=== PATIENT | male | born 1945 | race Caucasian/White ===

== ENCOUNTER 2021-03-31 12:39 | Emergency (ER) | payer MEDICARE ==
[~2021-03-31] VITALS: Ht 188 cm; Wt 88.6 kg
--- NOTE | 2021-03-31 13:13 | NUR ---
LEFT FOREARM REDDENED RASH STARTED ABOUT 3 PM YESTERDAY WHEN HE WAS REMOVING PATION FURNITURE FROM CUPBORDS OUTSIDE. THE RASH IS BIGGER WITH A DARKER PURPLISH AREA. DEMARCATED WITH SKIN MARKERl: TIMED AND DATED PATIETN NOT ON BLOOD THINNERS
[2021-03-31] MEDS ORDERED: CEPH-585 PO (14:12)
[2021-03-31 14:28] VITALS: BP 119/66
== END 2021-03-31 14:33 | disposition home or self-care (01) ==
LOC: ER 12:42
DX: L03.114 Cellulitis of left upper limb (principal); Z79.899 Other long term (current) drug therapy
CPT/HCPCS: 99283

== ENCOUNTER 2022-01-21 12:03 | Observation (INO) | payer MEDICARE ==
[~2022-01-21] VITALS: Ht 188 cm; Wt 89.9 kg
[2022-01-21 12:55] LABS: BASOPHILS % (AUTO) 0.6 % (0-1); EOSINOPHILS # (AUTO) 0.1 X10'3 (0-0.9); EOSINOPHILS % (AUTO) 1.9 % (0-6); HEMATOCRIT 40.5 % (42.0-52.0); HEMOGLOBIN 13.8 g/dl (14.0-17.9); LYMPHOCYTES # (AUTO) 1.9 X10'3 (1.1-4.8); LYMPHOCYTES % (AUTO) 27.7 % (21-51); MEAN CORPUSCULAR HEMOGLOBIN 32.8 PG (27.0-31.0); MEAN CORPUSCULAR HGB CONC 33.9 g/dL (33.0-36.5); MEAN CORPUSCULAR VOLUME 96.7 FL (78-98); MEAN PLATELET VOLUME 8.3 FL (7.4-10.4); MONOCYTES # (AUTO) 0.5 X10'3 (0-0.9); MONOCYTES % (AUTO) 7.9 % (2-12); NEUTROPHILS # (AUTO) 4.3 X10'3 (1.8-7.7); NEUTROPHILS % (AUTO) 61.9 % (42-75); PLATELET COUNT 246 X10'3 (140-440); RED BLOOD COUNT 4.19 X10'6 (4.70-6.10); RED CELL DISTRIBUTION WIDTH 13.7 % (11.5-14.5); WHITE BLOOD COUNT 6.9 X10'3 (4.5-11.0)
[2022-01-21 13:53] LABS: ALANINE AMINOTRANSFERASE 31 U/L (12-78); ALBUMIN 3.7 G/DL (3.4-5.0); ALBUMIN/GLOBULIN RATIO 1.2 (1.1-1.5); ALKALINE PHOSPHATASE 64 IU/L (46-116); ANION GAP 9 (8-16); ASPARTATE AMINO TRANSFERASE 33 U/L (10-37); BILIRUBIN,TOTAL 0.7 MG/DL (0.1-1.0); BLOOD UREA NITROGEN 22 MG/DL (7-18); BUN/CREATININE RATIO 20.2 (5.4-32.0); CALCIUM 8.6 MG/DL (8.5-10.1); CHLORIDE 107 MMOL/L (99-107); CREATININE 1.09 MG/DL (0.60-1.10); GLUCOSE 95 MG/DL (70-104); POTASSIUM 4.2 MMOL/L (3.5-5.1); SODIUM 143 MMOL/L (135-145); TOTAL CARBON DIOXIDE 27.1 MMOL/L (24-32); TOTAL PROTEIN 6.7 G/DL (6.4-8.2); eGFR 65 ML/MIN
[2022-01-21] MEDS ORDERED: tamsulosin 0.4mg capsule PO STA (15:02)
[2022-01-21] MEDS ORDERED: CefTRIAXone 2gm/D5W 50ml BAG 50 ML IV ONE (15:05)
[2022-01-21] MEDS ORDERED: normal saline 1000ML IV soln IVB ONE (15:05)
[2022-01-21] MEDS ORDERED: ondansetron/PF 4mg/2ml inj IV ONE (15:05)
[2022-01-21] MEDS ORDERED: ketorolac trometh. 30mg/ml inj. IV ONE (15:05)
[2022-01-21] MEDS ORDERED: morphine 4 MG/ML inj SYRINge IV PRN (15:05)
[2022-01-21] MEDS ORDERED: LIOT5TAB10 PO (15:35)
[2022-01-21] MEDS ORDERED: DONE10TA44 PO (15:35)
[2022-01-21] MEDS ORDERED: PREG50CA64 PO (15:35)
[2022-01-21] MEDS ORDERED: PREG200C28 PO (15:35)
[2022-01-21] MEDS ORDERED: MONT-40 PO (15:35)
[2022-01-21] MEDS ORDERED: LEVO50TA PO (15:35)
[2022-01-21] MEDS ORDERED: potassium CL 10mEq/100ml bag 100 ML IV PRN (17:10)
[2022-01-21] MEDS ORDERED: potassium Cl 20 mEq SR tablet PO PRN ×2 (17:10)
[2022-01-21] MEDS ORDERED: HYDROcodone/acetaminophen 5mg/325mg tablet PO PRN (17:10)
[2022-01-21] MEDS ORDERED: magnesium 4gm in 100ml NS 100 ML IV PRN (17:10)
[2022-01-21] MEDS ORDERED: ondansetron/PF 4mg/2ml inj IV PRN (17:10)
[2022-01-21] MEDS ORDERED: magnesium Cl slow-release 64mg tablet PO PRN (17:10)
[2022-01-21] MEDS ORDERED: acetaminophen 325mg tablet PO PRN (17:10)
[2022-01-21] MEDS ORDERED: morphine 2 MG/ML inj. syringe IV PRN (17:10)
[2022-01-21] MEDS ORDERED: magnesium 2GM in 50ml NS 50 ML IV PRN (17:10)
[2022-01-21 18:21] LABS: MAGNESIUM 2.1 MG/DL (1.5-2.4)
[2022-01-21] MEDS: K and/or MAG REPLACEMENT MC SCH (20:00)
[2022-01-21] MEDS ORDERED: pregabalin 75mg capsule PO ONE (20:05)
[2022-01-21] MEDS: docusate sod 100mg capsule PO SCH (23:38)
[2022-01-21] MEDS: normal saline 1000ml 1,000 ML IV SCH (23:39)
[2022-01-22] VITALS: BP 122/59
[2022-01-22 02:00] VITALS: BP 136/67
[2022-01-22 06:06] LABS: BASOPHILS % (AUTO) 0.5 % (0-1); EOSINOPHILS # (AUTO) 0.2 X10'3 (0-0.9); HEMATOCRIT 38.9 % (42.0-52.0); HEMOGLOBIN 13.1 g/dl (14.0-17.9); LYMPHOCYTES # (AUTO) 2.2 X10'3 (1.1-4.8); LYMPHOCYTES % (AUTO) 33.7 % (21-51); MEAN CORPUSCULAR HEMOGLOBIN 32.6 PG (27.0-31.0); MEAN CORPUSCULAR HGB CONC 33.6 g/dL (33.0-36.5); MEAN CORPUSCULAR VOLUME 96.8 FL (78-98); MEAN PLATELET VOLUME 8.8 FL (7.4-10.4); MONOCYTES # (AUTO) 0.8 X10'3 (0-0.9); MONOCYTES % (AUTO) 12.8 % (2-12); NEUTROPHILS # (AUTO) 3.3 X10'3 (1.8-7.7); PLATELET COUNT 201 X10'3 (140-440); RED BLOOD COUNT 4.02 X10'6 (4.70-6.10); RED CELL DISTRIBUTION WIDTH 13.7 % (11.5-14.5); WHITE BLOOD COUNT 6.6 X10'3 (4.5-11.0)
[2022-01-22 06:23] LABS: ALBUMIN 3.2 G/DL (3.4-5.0); ANION GAP 8 (8-16); BLOOD UREA NITROGEN 20 MG/DL (7-18); BUN/CREATININE RATIO 19.2 (5.4-32.0); CALCIUM 8.5 MG/DL (8.5-10.1); CHLORIDE 111 MMOL/L (99-107); CREATININE 1.04 MG/DL (0.60-1.10); GLUCOSE 95 MG/DL (70-104); POTASSIUM 4.1 MMOL/L (3.5-5.1); SODIUM 146 MMOL/L (135-145); TOTAL CARBON DIOXIDE 27.4 MMOL/L (24-32); eGFR 69 ML/MIN
[2022-01-22] MEDS: K and/or MAG REPLACEMENT MC SCH (06:38)
[2022-01-22 08:00] VITALS: BP 104/54
[2022-01-22] MEDS ORDERED: pregabalin 75mg capsule PO SCH (08:00)
[2022-01-22] MEDS ORDERED: donepezil 5mg tablet PO SCH (08:00)
[2022-01-22] MEDS ORDERED: pregabalin 25mg capsule PO SCH (08:00)
[2022-01-22] MEDS: docusate sod 100mg capsule PO SCH (08:53)
[2022-01-22] MEDS: normal saline 1000ml 1,000 ML IV SCH (11:41)
[2022-01-22] MEDS ORDERED: iohexol 300mg/ml 100ml inj. ONE (13:53)
[2022-01-22] MEDS ORDERED: tamsulosin 0.4mg capsule PO SCH (15:30)
[2022-01-22] MEDS ORDERED: FLO0.4C PO (17:12)
--- NOTE | 2022-01-22 18:01 | NUR ---
PT DISCHARGED, [facility] PRESCRIPTION CALLED IN TO [facility] PER REQUEST. DISCHARGE ORDERS GIVEN TO . PIV REMOVED, AMBULATED TO ABIMBOLA
== END 2022-01-22 17:52 | disposition home or self-care (01) ==
LOC: ER 12:05 → ED HOLD 17:17 → EDBEDREQ 21:32 → SUR 3N 22:06
PROVIDERS: ADMIT Internal Medicine; ATTEND Internal Medicine
DX: N13.2 Hydronephrosis with renal and ureteral calculous obstruction (principal); N13.9 Obstructive and reflux uropathy, unspecified; N28.1 Cyst of kidney, acquired; E03.9 Hypothyroidism, unspecified; G30.9 Alzheimer's disease, unspecified; F02.80 Dementia in other diseases classified elsewhere, unspecified severity, without behavioral disturbance, psychotic disturbance, mood disturbance, and anxiety; Z79.899 Other long term (current) drug therapy
CPT/HCPCS: 36415; 74176; 74178; 80048; 80053; 83735; 84132; 85025; 87081; 96361; 96365; 96375; 99284; G0378; J0696; J1885; J2405; J7030; Q9967